=== PATIENT | male | born 1995 | race Caucasian/White ===

== ENCOUNTER 2016-09-19 01:33 | Emergency (ER) | payer OTHER ==
[~2016-09-19] VITALS: Ht 180.3 cm; Wt 113.6 kg
[2016-09-19 01:35] VITALS: TEMP 98.2
[2016-09-19] MEDS ORDERED: PAXIL 20MG20 MG PO (01:38)
[2016-09-19] MEDS ORDERED: MICROZIDE12.5 MG PO (01:40)
[2016-09-19] MEDS ORDERED: ATIVAN 1MG T1 MG/TAB PO (02:47)
[2016-09-19 03:00] VITALS: BP 117/71; PULSE 64
== END 2016-09-19 03:05 | disposition home or self-care (01) ==
LOC: COL.ER 01:33
DX: T50.905A Adverse effect of unspecified drugs, medicaments and biological substances, initial encounter (principal); I10 Essential (primary) hypertension; F41.9 Anxiety disorder, unspecified; Z98.890 Other specified postprocedural states
CPT/HCPCS: J2060

== ENCOUNTER → 2017-10-28 | Outpatient (CLI) | payer OTHER ==
[~2017-10-28] MED LIST: ATIVAN 1MG T1 MG/TAB PO; MICROZIDE12.5 MG PO; PAXIL 20MG20 MG PO
== END ==
LOC: COL.RAD 10:22
DX: N50.812 Left testicular pain (principal); N50.811 Right testicular pain

== ENCOUNTER → 2018-07-16 | Outpatient (CLI) | payer BC | LOC: COL.RAD 08:15 | DX: R94.5 Abnormal results of liver function studies (principal); R10.11 Right upper quadrant pain ==